=== PATIENT | female | born 1985 | race Hispanic/Latino ===

== ENCOUNTER 2024-08-11 07:03 | Emergency (ER) | payer BC, SELFPAY ==
[2024-08-11 07:35] LABS: #Eosinphils 0.3 thou/uL (0.0-0.7); #Lymphocytes 0.4 thou/uL (1.20-3.40); #Monocytes 0.3 thou/uL (0.11-0.59); #Neutrophils 3.9 thou/uL (1.40-6.50); %Basophils 0.7 % (0.0-1.0); %Eosinophils 5.1 % (0.0-10.0); %Lymphocytes 8.8 % (21.0-51.0); %Monocytes 6.2 % (0.0-10.0); %Neutrophils 79.2 % (42.0-75.0); Hematocrit 48.1 % (36.0-47.0); Hemoglobin 14.6 g/dL (12.0-16.0); Mean Corpuscular HGB CONC 30.3 g/dL (32.0-36.0); Mean Corpuscular Hemoglobin 25.5 pg (27.0-31.0); Mean Corpuscular Volume 84.2 fl (78.0-98.0); Mean Platelet Volume 7.5 fL (7.4-10.4); Platelet Count 249 10x3/uL (130-400); RBC Distribution Width 14.7 % (11.5-14.5); Red Blood Cell (RBC) Count 5.71 mill/uL (4.20-5.40)
[2024-08-11 07:50] LABS: ALT (SGPT) 29 U/L (8-55); AST (SGOT) 27 U/L (5-34); Albumin 3.8 g/dL (3.5-5.0); Alcohol Less than 10.0 mg/dL (Less than 10); Alkaline Phosphatase 78 U/L (40-110); Anion Gap 16 mmol/L (10-20); BUN (Urea Nitrogen) 13 mg/dL (7.0-18.7); Bilirubin, Total 0.4 mg/dL (0.2-1.2); CK (CPK) 63 U/L (29-168); Calc. Creatinine Clearance 0 mL/min (70-130); Calcium 9.7 mg/dL (7.8-10.44); Carbon Dioxide 24 mmol/L (22-29); Chloride 102 mmol/L (98-107); Estimated GFR 111; Globulin 3.9 g/dL (2.4-3.5); Glucose 152 mg/dL (70-105); Potassium 4.1 mmol/L (3.5-5.1); Protein, Total 7.7 g/dL (6.0-8.3); Sodium 138 mmol/L (136-145)
[2024-08-11 08:09] LABS: Amphetamine Not Detected (NotDetected); Barbiturates Screen Not Detected (NotDetected); Benzodiazepine Screen Not Detected (NotDetected); Cocaine Metabolite Screen Not Detected (NotDetected); Methadone Not Detected (NotDetected); Methamphetamine Not Detected (NotDetected); Opiate Screen Not Detected (NotDetected); Oxycodone Screen Not Detected (NotDetected); Phencyclidine (PCP) Not Detected (NotDetected); THC/Cannabinoid Screen Not Detected (NotDetected); Tricyclic Screen Not Detected (NotDetected)
[2024-08-11 08:12] LABS: Bilirubin Negative (Negative); Blood, Urine Trace (Negative); Clarity Clear (Clear); Glucose, Urine (Dipstick) Negative (Negative); Ketone, Urine Negative (Negative); Leukocyte Trace (Negative); Nitrite Negative (Negative); Protein, Urine (Dipstick) Negative (Neg-Trace); Specific Gravity, Urine 1.015 (1.005-1.030); Urobilinogen 0.2 mg/dL (Less than 2); pH, Urine 5.5 (5.0-9.0)
[2024-08-11 08:17] LABS: Bacteria/HPF None Seen HPF (None Seen); CAUTI Indications for Culture Alt mental st,lethar; RBC/HPF 0-3 HPF (0-3); Squamous Epithelial 0-3 HPF (0-3); WBC/HPF 0-3 HPF (0-3)
[2024-08-11 08:18] LABS: Urine Culture Reflex No No
[2024-08-11 08:30] LABS: Pregnancy Test - Urine (BHCG) Negative (Negative)
[2024-08-11 08:31] LABS: Pregu Control Background? CLEAR/WHITE (CLR/WHITE); Pregu Control Bar Appear? YES (CONTROL BAR); Specific Gravity 1.015 (1.002-1.036)
[2024-08-11] MEDS ORDERED: Ondansetron ODT 4 MG TAB ONE (10:30)
== END 2024-08-11 11:52 | disposition home or self-care (01) ==
LOC: NAV ERS 07:03
DX: T39.312A Poisoning by propionic acid derivatives, intentional self-harm, initial encounter (principal); E11.9 Type 2 diabetes mellitus without complications; E66.01 Morbid (severe) obesity due to excess calories; Z03.6 Encounter for observation for suspected toxic effect from ingested substance ruled out; Z79.84 Long term (current) use of oral hypoglycemic drugs
CPT/HCPCS: 80053; 80306; 80307; 81001; 81025; 82550; 84443; 85025; 99284; Q0162

== ENCOUNTER 2024-09-11 13:10 | Emergency (ER) | payer BC ==
[2024-09-11] MEDS ORDERED: Tetracaine 0.5% PF 4 ML BOT ONE (13:18)
[2024-09-11] MEDS ORDERED: Fluorescein Opthalmic Strip ONE (13:18)
== END 2024-09-11 14:12 | disposition home or self-care (01) ==
LOC: NAV ERS 13:10
DX: H10.11 Acute atopic conjunctivitis, right eye (principal); R03.0 Elevated blood-pressure reading, without diagnosis of hypertension; E11.9 Type 2 diabetes mellitus without complications; Z79.84 Long term (current) use of oral hypoglycemic drugs
CPT/HCPCS: 99282

== ENCOUNTER 2024-11-30 07:38 | Emergency (ER) | payer BC | END 2024-11-30 08:31 | disposition home or self-care (01) | LOC: NAV ERS 07:38 | DX: H10.11 Acute atopic conjunctivitis, right eye (principal); J30.2 Other seasonal allergic rhinitis; E11.9 Type 2 diabetes mellitus without complications | CPT/HCPCS: 99282 ==

== ENCOUNTER 2024-12-18 16:15 | Emergency (ER) | payer BC ==
[2024-12-18 17:29] LABS: Troponin I Less than 0.010 ng/mL (< 0.028)
[2024-12-18 17:50] LABS: ALT (SGPT) 19 U/L (Less than 34); AST (SGOT) 30 U/L (11-34); Albumin 3.7 g/dL (3.1-4.5); Alkaline Phosphatase 69 U/L (40-110); Anion Gap 11 mmol/L (10-20); BUN (Urea Nitrogen) 11 mg/dL (7.0-18.7); Bilirubin, Total 0.3 mg/dL (0.3-1.2); Calc. Creatinine Clearance 0 mL/min (70-130); Calcium 9.7 mg/dL (7.8-10.44); Carbon Dioxide 24 mmol/L (22-29); Chloride 108 mmol/L (98-107); Estimated GFR 109; Glucose 176 mg/dL (70-105); Magnesium 1.9 mg/dL (1.6-2.6); Protein, Total 7.7 g/dL (6.0-8.3); Sodium 139 mmol/L (136-145)
[2024-12-18 18:15] LABS: Bilirubin Negative (Negative); Blood, Urine Negative (Negative); Clarity Clear (Clear); Glucose, Urine (Dipstick) Negative (Negative); Ketone, Urine 15 mg/dL (Negative); Leukocyte Trace (Negative); Nitrite Negative (Negative); Protein, Urine (Dipstick) 30 mg/dL (Neg-Trace); Urobilinogen 0.2 mg/dL (Less than 2)
[2024-12-18 18:24] LABS: Bacteria/HPF 2+ HPF (None Seen); CAUTI Indications for Culture Alt mental st,lethar; RBC/HPF 0-3 HPF (0-3)
[2024-12-18 18:25] LABS: Urine Culture Reflex No No
== END 2024-12-18 19:00 | disposition home or self-care (01) ==
LOC: NAV ERS 16:15
DX: R06.02 Shortness of breath (principal); R05.9 Cough, unspecified; E11.9 Type 2 diabetes mellitus without complications
CPT/HCPCS: 36415; 71046; 80053; 81001; 83735; 84484; 93005